=== PATIENT | male | born 2000 | race Caucasian/White ===

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

== ENCOUNTER → 2020-07-05 15:43 | Outpatient (BNVA) | payer MEDICAID, SELFPAY | PROVIDERS: Family Provider Family Medicine; PCP Family Medicine; Visit Provider Nurse Practitioner Psychiatric/Mental Health | DX: F84.0 Autistic disorder (principal); F70 Mild intellectual disabilities | CPT/HCPCS: 99212 ==

== ENCOUNTER → 2021-01-01 13:55 | Outpatient (BNVA) | payer MEDICAID, SELFPAY | PROVIDERS: Family Provider Family Medicine; PCP Family Medicine; Visit Provider Nurse Practitioner Psychiatric/Mental Health | DX: F84.0 Autistic disorder (principal); Z79.899 Other long term (current) drug therapy; F70 Mild intellectual disabilities | CPT/HCPCS: 99214 ==

== ENCOUNTER → 2021-01-06 10:05 | Outpatient (BNVA) | payer MEDICAID, SELFPAY | PROVIDERS: Family Provider Family Medicine; PCP Family Medicine; Visit Provider Nurse Practitioner Psychiatric/Mental Health | DX: Z79.899 Other long term (current) drug therapy (principal) | CPT/HCPCS: 80053; 80061; 83036 ==